=== PATIENT | male | born 1970 | race Caucasian/White ===

== ENCOUNTER 2018-01-14 20:22 | Inpatient (IN) | payer BC ==
[2018-01-15] VITALS: BMI 36.5
--- NOTE | 2018-01-15 02:17 | HP ---
CIWA Score - CIWA Score Nausea/Vomitin (vomiting x 6) Muscle Tremors: 4-Moderate,w/Arms Extend Anxiety: 4-Mod. Anxious/Guarded Agitation: 3 Paroxysmal Sweats: No Perspiration Orientation: 0-Oriented Tacttile Disturbances: 0-None Auditory Disturbances: 0-None Visual Disturbances: 0-None Headache: 3-Moderate CIWA-Ar Total Score: 17 Admission ROS S - HPI Chief Complaint: Alcohol withdrawal symptoms Allergies/Adverse Reactions: Allergies Allergy/AdvReac Type Severity Reaction Status Date / Time No Known Drug Allergies Allergy Unknown Verified 04/18/12 13:27 History of Present Illness: 47 years old male with a long history of alcohol dependence is seeking admission to detox. Patient has been in previous detox and reports two years of sobriety. He has medical history of hypertension, depression and anxiety. He denies suicide attempt and suicidal ideation at this time. Exam Limitations: No Limitations - Ebola screening Have you traveled outside of the country in the last 21 days: No Have you had contact with anyone from an Ebola affected area: No Have you been sick,other than usual withdrawal symptoms: No Do you have a fever: No - Review of Systems Constitutional: Chills, Malaise, Changes in sleep, Weakness EENT: reports: No Symptoms Reported Respiratory: reports: No Symptoms reported Cardiac: reports: No Symptoms Reported GI: reports: Diarrhea, Nausea, Poor Appetite, Poor Fluid Intake, Vomiting, Abdominal cramping : reports: No Symptoms Reported Musculoskeletal: reports: Other (neck pain) Integumentary: reports: Dryness Neuro: reports: Headache, Tingling, Tremors Endocrine: reports: No Symptoms Reported Hematology: reports: No Symptoms Reported Psychiatric: reports: No Sypmtoms Reported, Orientated x3, Anxious, Depressed Other Systems: Reviewed and Negative Patient History - Patient Medical History Hx Anemia: No Hx Asthma: No Hx Chronic Obstructive Pulmonary Disease (COPD): No Hx Cancer: No Hx Cardiac Disorders: No Hx Congestive Heart Failure: No Hx Hypertension: Yes ([place] 3) Hx Hypercholesterolemia: Yes (Not on medication) Hx Pacemaker: No HX Cerebrovascular Accident: No Hx Seizures: No Hx Diabetes: No Hx Gastrointestinal Disorders: No Hx Genitourinary Disorders: No Hx Sexually Transmitted Disorders: No Hx Renal Disease (ESRD): No Hx Depression: Yes (Not medication) Hx Suicide Attempt: No (Denies suicide attempt and suicidal ideation at this time) Hx Schizophrenia: No - Patient Surgical History Past Surgical History: Yes Hx Neurologic Surgery: No Hx Cataract Extraction: No Hx Cardiac Surgery: No Hx Lung Surgery: No Hx Breast Surgery: No Hx Breast Biopsy: No Hx Abdominal Surgery: No Hx Appendectomy: No Hx Cholecystectomy: No Hx Genitourinary Surgery: No Hx Section: No Hx Orthopedic Surgery: No Other Surgical History: 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 History Hx Alcohol Use: Yes Substance Use Type: Alcohol Hx Substance Use Treatment: No Family Disease History - Family Disease History Family History: Denies Admission Physical Exam [facility] - Vital Signs Vital Signs: Vital Signs - 24 hr 01/14/18 23:59 Temperature 98 F Pulse Rate 110 H Respiratory 18 Rate Blood Pressure 144/98 - Physical General Appearance: Yes: Moderate Distress, Tremorous, Irritable, Anxious HEENTM: Yes: EOMI, Normal ENT Inspection, Normocephalic, Normal Voice, SHANNON Respiratory: Yes: Lungs Clear, Normal Breath Sounds, No Respiratory Distress Neck: Yes: Supple Breast: Yes: Breast Exam Deferred Cardiology: Yes: Tachycardia Abdominal: Yes: Normal Bowel Sounds Genitourinary: Yes: Within Normal Limits Back: Yes: Normal Inspection Musculoskeletal: Yes: Muscle Pain, Other (neck pain) Extremities: Yes: Tremors 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, Normal Mood/Affect Integumentary: Yes: Dry Lymphatic: Yes: Within Normal Limits - Diagnostic (1) Alcohol dependence with uncomplicated withdrawal Current Visit: Yes Status: Chronic (2) HTN (hypertension) Current Visit: Yes Status: Chronic Qualifiers: Hypertension type: essential hypertension Qualified Code(s): I10 - Essential (primary) hypertension (3) Hyperlipidemia Current Visit: Yes Status: Chronic (4) Depression Current Visit: Yes Status: Chronic Qualifiers: Depression Type: unspecified Qualified Code(s): F32.9 - Major depressive disorder, single episode, unspecified Cleared for Admission [facility] - Detox or Rehab [facility] Level of Care: Medically Managed Detox Regimen/Protocol: Librium S Breath Alcohol Content Breath Alcohol Content: 0.190 Vital Signs - Vital Signs Vital Signs Refused: No Temperature: 98.0 F Temperature Source: Oral Pulse Rate: 110 Respiratory Rate: 18 BP Location: Left Arm - Height Height: 5 ft 8 in - Weight Weight: 240 lb Weight Measurement Method: Standing Scale Body Mass Index (BMI): 36.5 - Bowel Function Bowel Movement: Yes Urine Drug Screen - Test Device Lot Number: [id number] Expiration Date: 08/05/19 - Control Is Test Valid: Yes - Results Drug Screen Negative: Yes
[2018-01-15] MEDS ORDERED: LOPERAMIDE HCL 2 MG CAPSULE PO PRN (02:23)
[2018-01-15] MEDS ORDERED: MAG HYDROX/AL HYDROX/SIMETH 30 ML UNIT-DOSE CUP PO PRN (02:23)
[2018-01-15] MEDS ORDERED: IBUPROFEN 400 MG TABLET (FP) PO PRN (02:23)
[2018-01-15] MEDS ORDERED: chlordiazePOXIDE HCL 25 MG CAPSULE PO ONE ×2 (02:23→14:00)
[2018-01-15] MEDS ORDERED: MENTHOL/PHENOL 1 EACH UD MM PRN (02:23)
[2018-01-15] MEDS ORDERED: MAGNESIUM HYDROX 2400MG/30ML ORAL SUSPENSION 30 ML CUP PO PRN (02:23)
[2018-01-15] MEDS ORDERED: NICOTINE POLACRILEX 2 MG GUM BC PRN (02:23)
[2018-01-15] MEDS ORDERED: guaiFENesin/D-METHORPHAN HB 10 ML UNIT-DOSE CUPS PO PRN (02:23)
[2018-01-15] MEDS ORDERED: P-EPHED 60MG/TRIPROLIDI 2.5MG TABLET PO PRN (02:23)
[2018-01-15] MEDS ORDERED: MAGNESIUM CITRATE 300 ML BOTTLE PO PRN (02:23)
[2018-01-15] MEDS ORDERED: ACETAMINOPHEN 325 MG TABLET (FP) PO PRN (02:23)
[2018-01-15] MEDS: chlordiazePOXIDE HCL 25 MG CAPSULE PO SCH ×4 (06:56→22:16)
[2018-01-15] MEDS: chlordiazePOXIDE HCL 25 MG CAPSULE PO PRN (07:01)
[2018-01-15] MEDS ORDERED: ONDANSETRON *ODT* 4 MG TABLET SL PRN (10:10)
[2018-01-15] MEDS: PRENATAL VITAMINS W/ FOLIC ACID TABLET (FP) PO SCH (10:20)
[2018-01-15] MEDS: NICOTINE 14 MG/24 HOURS TOPICAL PATCH TD SCH (10:21)
[2018-01-15] MEDS: PANTOPRAZOLE 40 MG TABLET (FP) PO SCH (10:21)
--- NOTE | 2018-01-15 12:06 | PN ---
S Progress Note Note: PT WAS ADMITTED EARLIER THIS MORNING. PT IS VERY RESTLESS AND IRRITABLE AND PACING ON HALLWAY TO AND FROM ROOM. ALERT O X 3. REPORTS WAS VOMITING BEFORE ADMISSION BUT HAS NOT VOMITED SINCE COMING TO THE FLOOR. Vital Signs 01/15/18 10:27 Temperature 97.8 F Pulse Rate 120 H Respiratory 20 Rate Blood Pressure 139/88 LABS PENDING EKG: SINUS TACHYCARDIA WITH OCCASIONAL PVC OTHERWISE NORMAL ECG DENIES CP/DIZZINESS/SOB CONTINUE TO MONITOR PT ADDITIONAL LIBRIUM 50 MG PO ONCE AT 1400 TODAY.
[2018-01-15] MEDS: CHLORHEXIDINE GLUCONATE 118 ML MOUTHWASH MM SCH ×2 (12:07→22:54)
[2018-01-15 15:25] LABS: URINE APPEARANCE CLEAR; URINE BILIRUBIN NEGATIVE (<2.0 mg/dL); URINE COLOR LTYELLOW; URINE GLUCOSE (UA) NEGATIVE (NEGATIVE); URINE KETONE NEGATIVE (NEGATIVE); URINE LEUK ESTERASE NEGATIVE (NEGATIVE); URINE NITRITE NEGATIVE (NEGATIVE); URINE PROTEIN NEGATIVE (NEGATIVE); URINE UROBILINOGEN NEGATIVE mg/dL (0.2-1.0)
--- NOTE | 2018-01-15 15:49 | CONSULT ---
[facility] Psychiatric Consult - Data Date of interview: 01/15/18 Admission source: 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 Substance Abuse History: Confirmed by patient in this interview.Details in current [facility] report : Smoking history: Former smoker. Have you smoked in the past 12 months: No. If you are a former smoker, when did you quit?: 2009. Hx Chewing Tobacco Use: No. Initiated information on smoking cessation: No. - Substance & Tx. History. Hx Alcohol Use: Yes. Substance Use Type: Alcohol. Hx Substance Use Treatment: No Medical History: Obesity,hypertension and hypercholesterolemia. Psychiatric History: Patient endorses a history of CPEP visits during periods of alcohol intoxication.Usually released after extended period of observation.No psychiatric hospitalizations.Mr Lowry denies prior exposure to psychotropic medications and he has no history of suicide attempts. Physical/Sexual Abuse/Trauma History: Stressors : separation from and being away from his four children. Additional Comment: Drug Screen is negative. Mental Status Exam - Mental Status Exam Alert and Oriented to: Time, Place, Person Cognitive Function: Good Patient Appearance: Unkempt, Disheveled Mood: Nervous, Withdrawn, Anxious Affect: Mood Congruent, Constricted Patient Behavior: Fatigued, Appropriate, Cooperative Speech Pattern: Clear, Appropriate Voice Loudness: Normal Thought Process: Intact, Goal Oriented Thought Disorder: Not Present Hallucinations: Denies Suicidal Ideation: Denies Homicidal Ideation: Denies Insight/Judgement: Fair Sleep: Fair Appetite: Good Muscle strength/Tone: Normal Gait/Station: Normal Psychiatric Findings - Problem List ([place] 1, 2,3) (1) Alcohol dependence with uncomplicated withdrawal Current Visit: Yes Status: Acute (2) Nicotine dependence Current Visit: Yes Status: Acute (3) Alcohol-induced mood disorder Current Visit: Yes Status: Suspected - Initial Treatment Plan Initial Treatment Plan: Psychoeducation and support.Sleep hygiene.Detoxification in progress.Mr Lowry has expressed interest in referral to a ETOH outpatient program that takes into account his work schedule.Sees " no reason " for psychotropic medications other than his current detoxification protocol.Observation.
--- NOTE | 2018-01-15 17:20 | EKG ---
Test Reason : Blood Pressure : / mmHG Vent. Rate : 102 BPM Atrial Rate : 102 BPM P-R Int : 184 ms QRS Dur : 088 ms QT Int : 370 ms P-R-T Axes : 039 -03 018 degrees QTc Int : 482 ms SINUS TACHYCARDIA WITH OCCASIONAL PREMATURE VENTRICULAR COMPLEXES OTHERWISE NORMAL ECG Confirmed by MD RIA, LANEY ([id number]) on 01/15/2018 5:20:16 PM Referred By: Sol Pimentel Confirmed By:LANEY ROLLINS MD
--- NOTE | 2018-01-15 17:21 | EKG ---
Test Reason : Blood Pressure : / mmHG Vent. Rate : 104 BPM Atrial Rate : 104 BPM P-R Int : 194 ms QRS Dur : 094 ms QT Int : 354 ms P-R-T Axes : 033 000 021 degrees QTc Int : 465 ms SINUS TACHYCARDIA OTHERWISE NORMAL ECG Confirmed by MD RIA, LANEY (2013) on 01/15/2018 5:21:25 PM Referred By: Sol Pimentel Confirmed By:LANEY ROLLINS MD
[2018-01-15] MEDS ORDERED: MELATONIN 5 MG TABLETS PO PRN (22:00)
[2018-01-15] MEDS: THIAMINE HCL 100 MG TABLET (FP) PO SCH (22:16)
[2018-01-16] MEDS: chlordiazePOXIDE HCL 25 MG CAPSULE PO SCH ×4 (05:13→22:23)
[2018-01-16 09:58] LABS: HEMATOCRIT 45.7 % (35.4-49); HEMOGLOBIN 15.4 GM/dL (11.7-16.9); MCH 30.5 pg (25.7-33.7); MCHC 33.8 g/dl (32.0-35.9); MEAN CELL VOLUME 90.5 fl (80-96); MEAN PLT VOLUME 8.6 fl (7.5-11.1); PLATELET COUNT 164 K/MM3 (134-434); RBC 5.05 M/mm3 (4.00-5.60); RDW 13.3 % (11.9-15.9); WHITE BLOOD COUNT 6.6 K/mm3 (4.0-10.0)
[2018-01-16 10:14] LABS: CHLORIDE 101 mmol/L (98-107); POTASSIUM 3.4 mmol/L (3.5-5.1); SODIUM 142 mmol/L (136-145)
[2018-01-16] MEDS: CHLORHEXIDINE GLUCONATE 118 ML MOUTHWASH MM SCH ×2 (10:14→22:23)
[2018-01-16] MEDS: PRENATAL VITAMINS W/ FOLIC ACID TABLET (FP) PO SCH (10:14)
[2018-01-16] MEDS: PANTOPRAZOLE 40 MG TABLET (FP) PO SCH (10:14)
[2018-01-16] MEDS: NICOTINE 14 MG/24 HOURS TOPICAL PATCH TD SCH (10:14)
[2018-01-16 10:23] LABS: ALBUMIN 3.5 g/dl (3.4-5.0); ALK PHOS 103 U/L (45-117); ANION GAP 12 MMOL/L (8-16); BILIRUBIN,TOTAL 0.9 mg/dL (0.2-1.0); BLOOD UREA NITROGEN 17 mg/dL (7-18); CALCIUM 8.6 mg/dL (8.5-10.1); CO2 29 mmol/L (21-32); CREATININE 1.1 mg/dL (0.7-1.3); GLUCOSE,RANDOM 89 mg/dL (74-106); SGOT/AST 50 U/L (15-37); SGPT/ALT 43 U/L (12-78); TOT PROT 6.5 g/dl (6.4-8.2)
--- NOTE | 2018-01-16 12:59 | PN ---
S CIWA - CIWA Score Nausea/Vomitin-No Nausea/No Vomiting Muscle Tremors: 4-Moderate,w/Arms Extend Anxiety: 4-Mod. Anxious/Guarded Agitation: 4-Moderately Restless Paroxysmal Sweats: 1-Minimal Palms Moist Orientation: 0-Oriented Tacttile Disturbances: 0-None Auditory Disturbances: 0-None Visual Disturbances: 0-None Headache: 0-None Present CIWA-Ar Total Score: 13 S Progress Note (SOAP) Subjective: ANXIETY,SWEATS,TREMORS,IRRITABILITY. Objective: 01/16/18 12:58 Vital Signs 01/16/18 01/16/18 01/16/18 06:08 06:36 10:48 Temperature 97.4 F L 97.4 F L Pulse Rate 83 91 H Respiratory 18 18 18 Rate Blood Pressure 120/72 122/77 Laboratory Tests 01/15/18 01/16/18 01/16/18 11:05 07:00 07:00 WBC 6.6 RBC 5.05 Hgb 15.4 Hct 45.7 MCV 90.5 MCH 30.5 MCHC 33.8 RDW 13.3 D Plt Count 164 MPV 8.6 Sodium 142 Potassium 3.4 L D Chloride 101 Carbon Dioxide 29 Anion Gap 12 BUN 17 Creatinine 1.1 Creat Clearance w eGFR > 60 Random Glucose 89 Calcium 8.6 Total Bilirubin 0.9 AST 50 H ALT 43 D Alkaline Phosphatase 103 Total Protein 6.5 Albumin 3.5 Urine Color Ltyellow Urine Appearance Clear Urine pH 7.0 D Ur Specific [place] 1.014 Urine Protein Negative Urine Glucose (UA) Negative Urine Ketones Negative Urine Blood Negative Urine Nitrite Negative Urine Bilirubin Negative Urine Urobilinogen Negative Ur Leukocyte Esterase Negative RPR Titer 01/16/18 07:00 WBC RBC Hgb Hct MCV MCH MCHC RDW Plt Count MPV Sodium Potassium Chloride Carbon Dioxide Anion Gap BUN Creatinine Creat Clearance w eGFR Random Glucose Calcium Total Bilirubin AST ALT Alkaline Phosphatase Total Protein Albumin Urine Color Urine Appearance Urine pH Ur Specific [place] Urine Protein Urine Glucose (UA) Urine Ketones Urine Blood Urine Nitrite Urine Bilirubin Urine Urobilinogen Ur Leukocyte Esterase RPR Titer Nonreactive Assessment: 01/16/18 12:59 WITHDRAWAL SX BORDERLINE HYPOKALEMIA Plan: CONTINUE DETOX KDUR 20 MEQ PO DAILY X 3 DAYS
[2018-01-16] MEDS: chlordiazePOXIDE HCL 25 MG CAPSULE PO PRN (13:04)
[2018-01-16] MEDS: POTASSIUM CHLORIDE TABS 20 MEQ TABLET.ER (FP) PO SCH (13:48)
[2018-01-16] MEDS: THIAMINE HCL 100 MG TABLET (FP) PO SCH (22:23)
[2018-01-17] MEDS: chlordiazePOXIDE 5 MG CAPSULE PO SCH ×2 (05:14→10:26)
[2018-01-17] MEDS: PANTOPRAZOLE 40 MG TABLET (FP) PO SCH (10:26)
[2018-01-17] MEDS: NICOTINE 14 MG/24 HOURS TOPICAL PATCH TD SCH (10:26)
[2018-01-17] MEDS: POTASSIUM CHLORIDE TABS 20 MEQ TABLET.ER (FP) PO SCH (10:26)
[2018-01-17] MEDS: PRENATAL VITAMINS W/ FOLIC ACID TABLET (FP) PO SCH (10:26)
[2018-01-17] MEDS: CHLORHEXIDINE GLUCONATE 118 ML MOUTHWASH MM SCH (10:26)
--- NOTE | 2018-01-17 12:53 | PN ---
[facility] CIWA - CIWA Score Nausea/Vomitin-No Nausea/No Vomiting Muscle Tremors: None Anxiety: 0-No Anxiety, at Ease Agitation: 0-Normal Activity Paroxysmal Sweats: No Perspiration Orientation: 0-Oriented Tacttile Disturbances: 0-None Auditory Disturbances: 0-None Visual Disturbances: 0-None Headache: 1-Very Mild CIWA-Ar Total Score: 1 [facility] Progress Note (SOAP) Subjective: Patient c/o mild headache Objective: 01/17/18 12:51 Vital Signs Temperature 98.2 F 01/17/18 09:52 Pulse Rate 67 01/17/18 09:52 Respiratory Rate 20 01/17/18 09:52 Blood Pressure 103/71 01/17/18 09:52 O2 Sat by Pulse Oximetry (%) Laboratory Tests 01/15/18 01/16/18 01/16/18 11:05 07:00 07:00 WBC 6.6 RBC 5.05 Hgb 15.4 Hct 45.7 MCV 90.5 MCH 30.5 MCHC 33.8 RDW 13.3 D Plt Count 164 MPV 8.6 Sodium 142 Potassium 3.4 L D Chloride 101 Carbon Dioxide 29 Anion Gap 12 BUN 17 Creatinine 1.1 Creat Clearance w eGFR > 60 Random Glucose 89 Calcium 8.6 Total Bilirubin 0.9 AST 50 H ALT 43 D Alkaline Phosphatase 103 Total Protein 6.5 Albumin 3.5 Urine Color Ltyellow Urine Appearance Clear Urine pH 7.0 D Ur Specific [place] 1.014 Urine Protein Negative Urine Glucose (UA) Negative Urine Ketones Negative Urine Blood Negative Urine Nitrite Negative Urine Bilirubin Negative Urine Urobilinogen Negative Ur Leukocyte Esterase Negative RPR Titer 01/16/18 07:00 WBC RBC Hgb Hct MCV MCH MCHC RDW Plt Count MPV Sodium Potassium Chloride Carbon Dioxide Anion Gap BUN Creatinine Creat Clearance w eGFR Random Glucose Calcium Total Bilirubin AST ALT Alkaline Phosphatase Total Protein Albumin Urine Color Urine Appearance Urine pH Ur Specific [place] Urine Protein Urine Glucose (UA) Urine Ketones Urine Blood Urine Nitrite Urine Bilirubin Urine Urobilinogen Ur Leukocyte Esterase RPR Titer Nonreactive Assessment: 01/17/18 12:52 Withdrawal sydrome K 3.4 result 01/16/18 Plan: Continue detox protocol repeat bmp in am
[2018-01-17] MEDS ORDERED: chlordiazePOXIDE HCL 10 MG CAPSULE PO SCH (17:00)
[2018-01-17 18:18] VITALS: BP 149/85; PULSE 97; TEMP 97.9
--- NOTE | 2018-01-17 18:24 | DS ---
[facility] Detox Discharge Summary Admission Date: 01/15/18 Discharge Date: 01/17/18 - History Present History: Alcohol Dependence Additional Comments: Patient medically stable. Patient to follow up with primary medical provider in 1 - 2 weeks. - Physical Exam Results Vital Signs: Vital Signs Temperature 97.9 F 01/17/18 18:17 Pulse Rate 97 H 01/17/18 18:17 Respiratory Rate 18 01/17/18 18:17 Blood Pressure 149/85 01/17/18 18:17 O2 Sat by Pulse Oximetry (%) Pertinent Admission Physical Exam Findings: Vital Signs Temperature 97.9 F 01/17/18 18:17 Pulse Rate 97 H 01/17/18 18:17 Respiratory Rate 18 01/17/18 18:17 Blood Pressure 149/85 01/17/18 18:17 O2 Sat by Pulse Oximetry (%) Laboratory Last Values WBC 6.6 K/mm3 (4.0-10.0) 01/16/18 07:00 RBC 5.05 M/mm3 (4.00-5.60) 01/16/18 07:00 Hgb 15.4 GM/dL (11.7-16.9) 01/16/18 07:00 Hct 45.7 % (35.4-49) 01/16/18 07:00 MCV 90.5 fl (80-96) 01/16/18 07:00 MCH 30.5 pg (25.7-33.7) 01/16/18 07:00 MCHC 33.8 g/dl (32.0-35.9) 01/16/18 07:00 RDW 13.3 % (11.9-15.9) D 01/16/18 07:00 Plt Count 164 K/MM3 (134-434) 01/16/18 07:00 MPV 8.6 fl (7.5-11.1) 01/16/18 07:00 Sodium 142 mmol/L (136-145) 01/16/18 07:00 Potassium 3.4 mmol/L (3.5-5.1) L D 01/16/18 07:00 Chloride 101 mmol/L (98-107) 01/16/18 07:00 Carbon Dioxide 29 mmol/L (21-32) 01/16/18 07:00 Anion Gap 12 MMOL/L (8-16) 01/16/18 07:00 BUN 17 mg/dL (7-18) 01/16/18 07:00 Creatinine 1.1 mg/dL (0.7-1.3) 01/16/18 07:00 Creat Clearance w eGFR > 60 (>60) 01/16/18 07:00 Random Glucose 89 mg/dL (74-106) 01/16/18 07:00 Calcium 8.6 mg/dL (8.5-10.1) 01/16/18 07:00 Total Bilirubin 0.9 mg/dL (0.2-1.0) 01/16/18 07:00 AST 50 U/L (15-37) H 01/16/18 07:00 ALT 43 U/L (12-78) D 01/16/18 07:00 Alkaline Phosphatase 103 U/L (45-117) 01/16/18 07:00 Total Protein 6.5 g/dl (6.4-8.2) 01/16/18 07:00 Albumin 3.5 g/dl (3.4-5.0) 01/16/18 07:00 Urine Color Ltyellow 01/15/18 11:05 Urine Appearance Clear 01/15/18 11:05 Urine pH 7.0 (5.0-8.0) D 01/15/18 11:05 Ur Specific [place] 1.014 (1.001-1.035) 01/15/18 11:05 Urine Protein Negative (NEGATIVE) 01/15/18 11:05 Urine Glucose (UA) Negative (NEGATIVE) 01/15/18 11:05 Urine Ketones Negative (NEGATIVE) 01/15/18 11:05 Urine Blood Negative (NEGATIVE) 01/15/18 11:05 Urine Nitrite Negative (NEGATIVE) 01/15/18 11:05 Urine Bilirubin Negative (<2.0 mg/dL) 01/15/18 11:05 Urine Urobilinogen Negative mg/dL (0.2-1.0) 01/15/18 11:05 Ur Leukocyte Esterase Negative (NEGATIVE) 01/15/18 11:05 RPR Titer Nonreactive (NONREACTIVE) 01/16/18 07:00 - Treatment Hospital Course: Detox Protocol Followed, Detoxed Safely, Responded well, Discharged Condition Good Patient has Accepted a Rehab Referral to: Follow up with out patient programs - Medication Discharge Medications: Ambulatory Orders NK [No Known Home Medication] 01/16/18 - Diagnosis (1) Alcohol dependence with uncomplicated withdrawal Current Visit: Yes Status: Acute (2) HTN (hypertension) Current Visit: Yes Status: Chronic Qualifiers: Hypertension type: essential hypertension Qualified Code(s): I10 - Essential (primary) hypertension - AMA Did Patient Leave Against Medical Advice: No
[2018-01-18] MEDS ORDERED: chlordiazePOXIDE HCL 10 MG CAPSULE PO SCH (05:00)
== END 2018-01-17 18:46 | disposition home or self-care (01) | DRG 897 ==
LOC: YASAS 20:22 → Y3N 01-15 00:48
PROC: HZ2ZZZZ Detoxification Services for Substance Abuse Treatment (ICD-10-PCS; principal; 2018-01-15)
DX: F10.230 Alcohol dependence with withdrawal, uncomplicated (principal); F17.213 Nicotine dependence, cigarettes, with withdrawal; F10.24 Alcohol dependence with alcohol-induced mood disorder; F32.9 Major depressive disorder, single episode, unspecified; I10 Essential (primary) hypertension; E78.5 Hyperlipidemia, unspecified
CPT/HCPCS: 36415; 80053; 81003; 85027; 86593; 93005; 93010

== ENCOUNTER 2020-01-30 05:28 | Day surgery (SDC) | payer OTHER ==
[2020-01-28 13:28] VITALS: BMI 39.5
--- OUTSIDE RECORDS SUMMARY | 2020-01-30 05:43 | XMS ---
:1970 Author Organization [facility] Support Name Relationship Address Phone [employer] Unavailable [address] [phone] [place] [address] ISATU CASILLAS N/A [place], [place] Re-disclosure Warning The records that you are about to access may contain information from federally- assisted alcohol or drug abuse programs. If such information is present, then the following federally mandated warning applies: This information has been disclosed to you from records protected by federal confidentiality rules (42 CFR part 2). The federal rules prohibit you from making any further disclosure of this information unless further disclosure is expressly permitted by the written consent of the person to whom it pertains or as otherwise permitted by 42 CFR part 2. A general authorization for the release of medical or other information is NOT sufficient for this purpose. The Federal rules restrict any use of the information to criminally investigate or prosecute any alcohol or drug abuse patient.The records that you are about to access may contain highly sensitive health information, the redisclosure of which is protected by Article 27-F of the [facility] Public Health law. If you continue you may haveaccess to information: Regarding HIV / AIDS; Provided by facilities licensed or operated by the [facility] Office of Mental Health; or Provided by the [facility] Office for People With Developmental Disabilities. If such information is present, then the following [facility] mandated warning applies: This information has been disclosed to you from confidential records which are protected by state law. State law prohibits you from making any further disclosure of this information without the specific written consent of the person to whom it pertains, or as otherwise permitted by law. Any unauthorized further disclosure in violation of state law may result in a fine or group home sentence or both. A general authorization for the release of medical or other information is NOT sufficient authorization for further disclosure. Insurance Providers Payer name Policy type Policy ID Covered Covered green party's Policy P bob / Coverage green party ID relationship to Love Inf ormation type love [id number] 500 HEALTH NON CAP Results ID Date Data Source [id number] 01/25/2020 01:45:00 PM EDT [facility] Name Value Range Interpretation Description Data Sup porting Code Source(s) Document(s ) SARS [facility] coronavirus 2 RNA This lab was ordered by [facility] and reported by [facility]. ID Date Data Source [id number] 12/13/2019 01:10:00 PM EDT [facility] Name Value Range Interpretation Description Data Sup porting Code Source(s) Document(s ) SARS [facility] coronavirus 2 RNA This lab was ordered by [facility] and reported by [facility]. ID Date Data Source [id number] 11/24/2019 09:22:00 AM EDT [facility] Name Value Range Interpretation Description Data Sup porting Code Source(s) Document(s ) SARS [facility] coronavirus 2 RNA This lab was ordered by [facility] and reported by [facility]. ID Date Data Source [id number] 08/20/2019 12:00:00 AM EDT [facility] Name Value Range Interpretation Code Description Data Delisa rce(s) Supporting Document(s ) 2019-nCoV [facility] RNA XXX ELLIOT+probe- Imp This lab was ordered by [facility] and reported by [facility] Procedure
[2020-01-30 08:59] VITALS: TEMP 98.1
[2020-01-30 10:21] VITALS: BP 136/83; PULSE 85
[2020-01-30 10:43] LABS: BASO % 0.8 % (0-2.0); EOS % 1.6 % (0-4.5); HEMOGLOBIN 15.6 GM/dL (11.7-16.9); LYMPH % 25.9 % (8-40); MCH 31.9 pg (25.7-33.7); MEAN CELL VOLUME 93.8 fl (80-96); MEAN PLT VOLUME 8.3 fl (7.5-11.1); MONO % 6.2 % (3.8-10.2); NEUT % 65.5 % (42.8-82.8); PLATELET COUNT 201 K/MM3 (134-434); RDW 13.6 % (11.9-15.9)
[2020-01-30 10:49] LABS: INR 1.03 (0.83-1.09); PROTHROMBIN TIME (PATIENT) 12.2 SEC (9.7-13.0)
[2020-01-30 11:11] LABS: ALBUMIN 4.3 g/dl (3.4-5.0); BILIRUBIN,TOTAL 0.5 mg/dL (0.2-1); BLOOD UREA NITROGEN 14.2 mg/dL (7-18); CALCIUM 9.1 mg/dL (8.5-10.1); CREATININE 1.2 mg/dL (0.55-1.3); POTASSIUM 4.1 mmol/L (3.5-5.1); TOT PROT 7.8 g/dl (6.4-8.2)
[2020-01-31 17:07] LABS: MITOCHONDRIAL AB <20.0 Units (0.0-20.0)
[2020-01-31 18:07] LABS: TRANSGLUTAMINASE IGA < 2 U/mL (0-3); TRANSGLUTAMINASE IGG 4 U/mL (0-5)
--- NOTE | 2020-02-02 15:04 | PATH ---
Surgical Pathology Report Patient Name: POOJA DUMONT [facility]. Rec. #: [id number] /Age/Gender: 1970 (Age: 49) / M Account: [id number] Location: U-ENDOSCOPY Taken: 01/30/2020 Received: 01/30/2020 Reported: 02/02/2020 Physicians: Shawn Rivas M.D. Specimen(s) Received A: SECOND PORTION DUODENUM B: PRE-PYLORIC ULCER C: ANTRUM Clinical History Occult GI bleeding, rule out varices, colon cancer screening Postoperative diagnosis: Gastric ulcers, gastritis, bleeding, hemorrhoids Final Diagnosis A. DUODENUM, SECOND PORTION, BIOPSY: DUODENAL MUCOSA WITHOUT SIGNIFICANT PATHOLOGIC FINDINGS. B. PRE-PYLORIC ULCER, BIOPSY: GASTRIC ANTRAL MUCOSA WITH SEVERE CHRONIC ACTIVE GASTRITIS. IMMUNOHISTOCHEMICAL STAIN FOR H. PYLORI IS POSITIVE (MANY). C. STOMACH, ANTRUM, BIOPSY: GASTRIC ANTRAL MUCOSA WITH SEVERE CHRONIC ACTIVE GASTRITIS. IMMUNOHISTOCHEMICAL STAIN FOR H. PYLORI IS POSITIVE (MANY). The Positive and negative controls (internal if applicable) show appropriate results. Electronically Signed Shireen Encarnacion M.D. Gross Description A. Received in formalin, labeled "biopsy second portion of duodenum" are 2 springer, irregular portions of soft tissue averaging 0.4 cm. in greatest dimension. The specimens are submitted in toto in one cassette. B. Received in formalin, labeled "biopsy prepyloric ulcer" is a springer, irregular portion of soft tissue measuring 0.4 cm. in greatest dimension. The specimen is submitted in toto in one cassette. C. Received in formalin, labeled "biopsy antrum" are 2 springer, irregular portions of soft tissue measuring 0.1 and 0.4 cm. in greatest dimension. The specimens are submitted in toto in one cassette. DL/01/30/2020 saudi/01/30/2020
== END 2020-01-30 10:28 | disposition home or self-care (01) ==
LOC: JASU-ENDO 05:28
PROVIDERS: ATTEND Internal Medicine Gastroenterology
PROC: 0DB68ZX Excision of Stomach, Via Natural or Artificial Opening Endoscopic, Diagnostic (ICD-10-PCS; 2020-01-30)
PROC: 0DB78ZX Excision of Stomach, Pylorus, Via Natural or Artificial Opening Endoscopic, Diagnostic (ICD-10-PCS; 2020-01-30)
PROC: 0DJD8ZZ Inspection of Lower Intestinal Tract, Via Natural or Artificial Opening Endoscopic (ICD-10-PCS; principal; 2020-01-30 08:00)
DX: Z12.11 Encounter for screening for malignant neoplasm of colon (principal); K92.1 Melena; Z83.71 Family history of colonic polyps; K64.8 Other hemorrhoids; K25.9 Gastric ulcer, unspecified as acute or chronic, without hemorrhage or perforation; K29.50 Unspecified chronic gastritis without bleeding
CPT/HCPCS: 43239; G0105; 36415; 80053; 82105; 82390; 83516; 85025; 85610; 86038; 86140; 86803; 88305-TC; 88342-TC

== ENCOUNTER 2020-05-15 14:26 | Inpatient (IN) | payer OTHER ==
[2020-05-15] MEDS ORDERED: DEXAMETHASONE SOD PHOSPHATE 4 MG/1 ML VIAL IVPUSH ONE (16:21)
[2020-05-15] MEDS ORDERED: DEXAMETHASONE SOD PHOSPHATE 4 MG/1 ML VIAL ONE (16:43)
[2020-05-15] MEDS ORDERED: ACETAMINOPHEN 1000 MG/100 ML BAG IVPB ONE (16:50)
[2020-05-15] MEDS ORDERED: SODIUM CHLORIDE 1,000 ML IV STA (16:50)
[2020-05-15 17:52] LABS: BASO % 0.2 % (0-2.0); HEMATOCRIT 48.1 % (35.4-49); HEMOGLOBIN 16.6 GM/dL (11.7-16.9); LYMPH % 21.4 % (8-40); MCH 31.6 pg (25.7-33.7); MCHC 34.5 g/dl (32.0-35.9); MEAN CELL VOLUME 91.6 fl (80-96); MEAN PLT VOLUME 8.9 fl (7.5-11.1); MONO % 7.4 % (3.8-10.2); PLATELET COUNT 158 K/MM3 (134-434); RBC 5.25 M/mm3 (4.00-5.60); RDW 13.5 % (11.9-15.9); WHITE BLOOD COUNT 7.1 K/mm3 (4.0-10.0)
[2020-05-15] MEDS ORDERED: ACETAMINOPHEN INJECTION 100 ML IVPB ONE (18:03)
[2020-05-15 18:11] LABS: CHLORIDE 102 mmol/L (98-107); SODIUM 138 mmol/L (136-145)
[2020-05-15 18:14] LABS: ALBUMIN 4.1 g/dl (3.4-5.0); ANION GAP 10 MMOL/L (8-16); BLOOD UREA NITROGEN 16.7 mg/dL (7-18); CALCIUM 8.7 mg/dL (8.5-10.1); CO2 27 mmol/L (21-32); GLUCOSE,RANDOM 98 mg/dL (74-106)
[2020-05-15 18:15] LABS: MAGNESIUM 2.1 mg/dL (1.8-2.4)
[2020-05-15 18:17] LABS: CREATININE 1.2 mg/dL (0.55-1.3); INR 1.06 (0.83-1.09); PROTHROMBIN TIME (PATIENT) 12.8 SEC (9.7-13.0); SGOT/AST 28 U/L (15-37); SGPT/ALT 34 U/L (13-61)
[2020-05-15 18:18] LABS: LDH 298 U/L (87-246)
[2020-05-15 18:19] LABS: BILIRUBIN,TOTAL 0.5 mg/dL (0.2-1); TOT PROT 7.8 g/dl (6.4-8.2)
[2020-05-15 18:20] LABS: ACTIVATED PTT 32.6 SECONDS (25.2-36.5); ALK PHOS 88 U/L (45-117)
[2020-05-15 18:22] LABS: N-TERMINAL BNP 9.5 pg/ml (5-125)
[2020-05-15] MEDS ORDERED: ALBUTEROL SO4 HFA INHALER IH PRN (19:43)
[2020-05-15] MEDS: ENOXAPARIN NA (PORCINE) 40 MG/0.4 ML DISP.SYRIN SQ SCH (21:00)
[2020-05-15] MEDS ORDERED: ENOXAPARIN NA (PORCINE) 40 MG/0.4 ML DISP.SYRIN SQ ONE (22:09)
[2020-05-15] MEDS ORDERED: ASCORBIC ACID 500 MG TABLET (FP) ONE (22:09)
[2020-05-15] MEDS ORDERED: ZINC SULFATE 220 MG CAPSULE (FP) ONE (22:09)
[2020-05-15] MEDS ORDERED: CHOLECALCIFEROL (VIT D3) 1,000 UNIT (25 MCG) TABLET ONE (22:17)
[2020-05-15] MEDS: ZINC SULFATE 220 MG CAPSULE (FP) PO SCH (22:34)
[2020-05-15] MEDS: CHOLECALCIFEROL (VIT D3) 400 UNIT (10 MCG) TABLET PO SCH (22:34)
[2020-05-15] MEDS: ASCORBIC ACID 500 MG TABLET (FP) PO SCH (22:35)
[2020-05-16] MEDS ORDERED: ACETAMINOPHEN 325 MG TABLET (FP) PO PRN
[2020-05-16 02:55] VITALS: BMI 43.4
[2020-05-16 09:04] LABS: HEMATOCRIT 44.3 % (35.4-49); HEMOGLOBIN 15.5 GM/dL (11.7-16.9); MCH 31.9 pg (25.7-33.7); MCHC 35.1 g/dl (32.0-35.9); MEAN CELL VOLUME 90.9 fl (80-96); MEAN PLT VOLUME 9.2 fl (7.5-11.1); PLATELET COUNT 153 K/MM3 (134-434); RBC 4.87 M/mm3 (4.00-5.60); RDW 13.6 % (11.9-15.9); WHITE BLOOD COUNT 4.1 K/mm3 (4.0-10.0)
[2020-05-16 09:31] LABS: ALBUMIN 3.4 g/dl (3.4-5.0); BLOOD UREA NITROGEN 16.5 mg/dL (7-18)
[2020-05-16 09:35] LABS: MAGNESIUM 2.4 mg/dL (1.8-2.4)
[2020-05-16 09:36] LABS: TOT PROT 6.8 g/dl (6.4-8.2)
[2020-05-16 09:39] LABS: BILIRUBIN,TOTAL 0.4 mg/dL (0.2-1)
[2020-05-16] MEDS: ZINC SULFATE 220 MG CAPSULE (FP) PO SCH (10:23)
[2020-05-16] MEDS: ASCORBIC ACID 500 MG TABLET (FP) PO SCH ×2 (10:24→21:22)
[2020-05-16] MEDS: amLODIPine BESYLATE 10 MG TABLET (FP) PO SCH (10:24)
[2020-05-16] MEDS: ENOXAPARIN NA (PORCINE) 40 MG/0.4 ML DISP.SYRIN SQ SCH (10:24)
[2020-05-16] MEDS: DEXAMETHASONE SOD PHOSPHATE 4 MG/1 ML VIAL IVPUSH SCH (10:32)
[2020-05-16] MEDS ORDERED: CASIRIVIMAB (REGN10933) 1,200 MG, IMDEVIMAB (REGN10987) 1,200 MG in SODIUM CHLORIDE 230 ML IVPB ONE (11:00)
[2020-05-16] MEDS: CHOLECALCIFEROL (VIT D3) 400 UNIT (10 MCG) TABLET PO SCH (14:30)
[2020-05-17] MEDS: ENOXAPARIN NA (PORCINE) 40 MG/0.4 ML DISP.SYRIN SQ SCH (09:35)
[2020-05-17] MEDS: ASCORBIC ACID 500 MG TABLET (FP) PO SCH ×2 (09:36→21:51)
[2020-05-17] MEDS: DEXAMETHASONE SOD PHOSPHATE 4 MG/1 ML VIAL IVPUSH SCH ×2 (09:36→11:45)
[2020-05-17] MEDS: ZINC SULFATE 220 MG CAPSULE (FP) PO SCH (09:36)
[2020-05-17] MEDS: amLODIPine BESYLATE 10 MG TABLET (FP) PO SCH (09:36)
[2020-05-17] MEDS: CHOLECALCIFEROL (VIT D3) 400 UNIT (10 MCG) TABLET PO SCH (09:39)
[2020-05-17] MEDS: guaiFENesin 200 MG/10 ML 10 ML UNIT-DOSE CUPS PO SCH ×4 (09:54→23:49)
[2020-05-18] MEDS: guaiFENesin 200 MG/10 ML 10 ML UNIT-DOSE CUPS PO SCH (06:58)
[2020-05-18] MEDS ORDERED: PT OWN MED DRAWER 7, Y5N ONE ×2 (07:03→10:58)
[2020-05-18] MEDS ORDERED: CODEINE SO4 30 MG TABLET PO PRN (09:34)
[2020-05-18] MEDS ORDERED: DOCUSATE SODIUM 100 MG CAPSULE (FP) PO SCH (10:00)
[2020-05-18] MEDS ORDERED: guaiFENesin 600 MG TABLET.ER (FP) PO SCH (10:00)
[2020-05-18] MEDS: amLODIPine BESYLATE 10 MG TABLET (FP) PO SCH (11:03)
[2020-05-18] MEDS: ASCORBIC ACID 500 MG TABLET (FP) PO SCH (11:03)
[2020-05-18] MEDS: ZINC SULFATE 220 MG CAPSULE (FP) PO SCH (11:03)
[2020-05-18] MEDS: CHOLECALCIFEROL (VIT D3) 400 UNIT (10 MCG) TABLET PO SCH (11:03)
[2020-05-18] MEDS ORDERED: DEXAMETHASONE 4 MG TABLET (FP) PO SCH (12:00)
[2020-05-18] MEDS: DEXAMETHASONE SOD PHOSPHATE 4 MG/1 ML VIAL IVPUSH SCH (12:36)
[2020-05-18 12:39] VITALS: BP 122/72; TEMP 97.9
[2020-05-18 14:24] VITALS: PULSE 97
[2020-05-18] MEDS: ENOXAPARIN NA (PORCINE) 40 MG/0.4 ML DISP.SYRIN SQ SCH (14:25)
== END 2020-05-18 14:47 | disposition home or self-care (01) | DRG 137 ==
LOC: JER 14:26 → JERBED 17:14 → J5S 23:28
PROVIDERS: ADMIT Hospitalist; ATTEND Internal Medicine
PROC: XW033H6 Introduction of Other New Technology Monoclonal Antibody into Peripheral Vein, Percutaneous Approach, New Technology Group 6 (ICD-10-PCS; principal; 2020-05-16)
DX: U07.1 COVID-19 (principal); J12.82 Pneumonia due to coronavirus disease 2019; E78.5 Hyperlipidemia, unspecified; J42 Unspecified chronic bronchitis; I10 Essential (primary) hypertension; E83.119 Hemochromatosis, unspecified; R73.03 Prediabetes; R63.0 Anorexia; Z68.41 Body mass index [BMI] 40.0-44.9, adult; F10.10 Alcohol abuse, uncomplicated; R09.02 Hypoxemia
CPT/HCPCS: 36415; 71045-TC-FY; 80053; 82550; 82553; 82728; 83036; 83615; 83735; 83880; 84484; 85025; 85027; 85379; 85610; 85730; 86140; 87426; 87804; 93005; 93010; 94761; 99285-25; C9803; J0131; M0243; Q0243; U0003

== ENCOUNTER 2020-06-23 08:35 | Emergency (ER) | payer OTHER ==
[2020-06-23 08:39] VITALS: BP 139/92; PULSE 91; TEMP 97.8; BMI 38.0
[2020-06-23] MEDS ORDERED: KETOROLAC TROMETHAMINE 30 MG/1 ML VIAL IM ONE (09:33)
[2020-06-23] MEDS ORDERED: LIDOCAINE 5% TOPICAL PATCH TP ONE (09:34)
[2020-06-23] MEDS ORDERED: LIDOCAINE 5% TOPICAL PATCH ONE (10:06)
[2020-06-23] MEDS ORDERED: KETOROLAC TROMETHAMINE 30 MG/1 ML VIAL ONE (10:07)
[2020-06-23] MEDS ORDERED: LIDOCAINE PATCH REMOVAL MC ONE (22:00)
== END 2020-06-23 10:19 | disposition home or self-care (01) ==
LOC: JER 08:35
PROC: 3E023GC Introduction of Other Therapeutic Substance into Muscle, Percutaneous Approach (ICD-10-PCS; principal; 2020-06-23)
DX: M54.89 Other dorsalgia (principal)
CPT/HCPCS: 71046-TC-FY; 99284-25